=== PATIENT | male | born 1955 | race Caucasian/White ===

== ENCOUNTER 2018-05-08 14:36 | Emergency (ER) | payer MEDICARE, BC ==
--- NOTE | 2018-05-08 14:41 | EDM.PDOC ---
ED HPI GENERAL MEDICAL PROBLEM - General Chief Complaint: Chest Pain Stated Complaint: [id number] CHEST PAIN Time Seen by Provider: 05/08/18 14:41 Source of Information: Reports: Patient, RN, RN Notes Reviewed History Limitations: Reports: No Limitations - History of Present Illness INITIAL COMMENTS - FREE TEXT/NARRATIVE: Pt presents to ER from home by POV with c/o chest pain, radiating to left shoulder & upper arm, and shortness of breath. Pt states he has "extensive cardiac disease" and has Hx of 16 coronary artery stents. Pt reports onset of chest pain yesterday while walking in [employer]. Today the pain returned and was briefly relieved with Nitro. 0.4mg SL twice today. He admits to shortness of breath. Denies orthopnea, cough, wheezing, or edema. Onset: Gradual Onset Date: 05/07/18 Duration: Constant, Getting Worse, Waxing/Waning Location: Reports: Chest Quality: Reports: Ache, Pressure Severity: Severe Improves with: Reports: Medication (nitroglycerin), Rest Worsens with: Reports: Other (minimal exertion) Associated Symptoms: Reports: No Other Symptoms Treatments [employer]: Reports: Aspirin, Nitroglycerin, Other Medication(s) Left Chest Pain Score (Numeric/FACES): 3 - Related Data Allergies Allergy/AdvReac Type Severity Reaction Status Date / Time acetaminophen [From Percocet] Allergy Hives Verified 05/08/18 15:22 atorvastatin [From Lipitor] Allergy Muscle Verified 05/08/18 15:22 Aches morphine Allergy Other Verified 05/08/18 15:22 oxycodone [From Percocet] Allergy Hives Verified 05/08/18 15:22 pravastatin [From Pravachol] Allergy Muscle Verified 05/08/18 15:22 Aches Home Meds: Home Meds Aspirin/Calcium Carbonate/Mag [Aspirin Buffered 325 mg Tab] 325 mg PO DAILY 09/13 [History] Fenofibrate Nanocrystallized [Fenofibrate] 145 mg PO DAILY 11/07/16 [History] Fish Oil/[place]-3 Fatty Acids [Fish Oil 1,000 MG] 2,000 mg PO DAILY 11/07/16 [ History] Isosorbide Mononitrate [Isosorbide Mononitrate ER] 120 mg PO DAILY 11/07/16 [ History] Lutein 1 tab PO DAILY 11/07/16 [History] Metoprolol Succinate [Toprol XL 100mg] 100 mg PO DAILY 11/07/16 [History] Multivitamin [Multi-Vitamin Daily] 1 tab PO DAILY 11/07/16 [History] Nitroglycerin [IJP: Nitroglycerin] 0.4 mg SL ASDIRECTED 11/07/16 [History] Pantoprazole [ProTONIX] 40 cap PO DAILY 11/07/16 [History] Ramipril [Altace] 10 mg PO DAILY 11/07/16 [History] Venlafaxine HCl [Venlafaxine ER] 150 mg PO DAILY 11/07/16 [History] Zinc 50 mg PO DAILY 11/07/16 [History] Past Medical History HEENT History: Reports: None Cardiovascular History: Reports: Angina, CAD, High Cholesterol, Hypertension, Stents Respiratory History: Reports: Sleep Apnea Gastrointestinal History: Reports: Diverticulosis Genitourinary History: Reports: Renal Calculus Musculoskeletal History: Reports: Back Pain, Chronic, Gout, Osteoarthritis, Other (See Below) Other Musculoskeletal History: DEGENERATIVE DISC DISEASE Neurological History: Reports: None Psychiatric History: Reports: Anxiety, Depression Endocrine/Metabolic History: Reports: Obesity/BMI 30+ Hematologic History: Reports: Anemia Immunologic History: Reports: None Oncologic (Cancer) History: Reports: None Dermatologic History: Reports: None - Infectious Disease History Infectious Disease History: Reports: Chicken Pox, Measles, Mumps - Past Surgical History Cardiovascular Surgical History: Reports: Coronary Artery Stent, Other (See Below) Neurological Surgical History: Reports: Laminectomy, Lumbar Spine Musculoskeletal Surgical History: Reports: Arthroscopic Knee, Other (See Below) Social & Family History - Family History Family Medical History: Noncontributory GI: Reports: Hepatitis : Reports: Other (See Below) Other Family History: PROSTRATE Oncologic: Reports: Liver - Tobacco Use Smoking Status *Q: Former Smoker Tobacco Use Within Last Twelve Months: Cigarettes Years of Tobacco use: 24 (quit in 1985) - Caffeine Use Caffeine Use: Reports: Coffee - Alcohol Use Alcohol Use History: Yes Alcohol Use Frequency: Rarely - Recreational Drug Use Recreational Drug Use: No - Living Situation & Occupation Living situation: Reports: , with Spouse Occupation: Employed ED ROS GENERAL - Review of Systems Review Of Systems: ROS reveals no pertinent complaints other than HPI. ED EXAM, GENERAL - Physical Exam Exam: See Below Exam Limited By: No Limitations General Appearance: Alert, Anxious, Mild Distress, Obese Eye Exam: Bilateral Eye: EOMI, Normal Inspection, PERRL Ears: Hearing Grossly Normal Nose: Normal Inspection, Normal Mucosa, No Blood Throat/Mouth: Normal Inspection, Normal Lips, Normal Oropharynx, Normal Voice, No Airway Compromise Head: Atraumatic, Normocephalic Neck: Normal Inspection, Supple, Non-Tender, Full Range of Motion Respiratory/Chest: No Respiratory Distress, Lungs Clear, No Accessory Muscle Use , Decreased Breath Sounds Cardiovascular: Regular Rate, Rhythm, Tachycardia GI/Abdominal: Normal Bowel Sounds, Soft, Non-Tender, No Distention (Male) Exam: Deferred Rectal (Males) Exam: Deferred Back Exam: Normal Inspection Extremities: Normal Range of Motion, Non-Tender, Pedal Edema (trace) Neurological: Alert, Oriented, CN II-XII Intact, Normal Cognition, No Motor/ Sensory Deficits Psychiatric: Anxious Skin Exam: Warm, Intact, Normal Color, Diaphoretic EKG INTERPRETATION EKG Date: 05/08/18 Time: 14:46 Rhythm: Other (Sinus Tach) Rate (Beats/Min): 121 [place]: Normal P-Wave: Present QRS: Other (inferior Q-waves) ST-T: Normal QT: Normal Comparison: NA - No Prior EKG Course - Vital Signs Last Recorded V/S: Last Vital Signs Temp 36.6 C 05/08/18 14:59 Pulse 124 H 05/08/18 14:59 Resp 18 05/08/18 14:59 BP 160/72 H 05/08/18 14:59 Pulse Ox 93 L 05/08/18 14:59 - Orders/Labs/Meds Orders: Active Orders 24 hr Category Date Time Status EKG 12 Lead [EKG Documentation Completion] [RC] STAT Care 05/08/18 14:41 Active Peripheral IV Care [RC] . DIRECTED Care 05/08/18 14:48 Active Telemetry Monitoring [Cardiac Monitoring] [RC] . Care 05/08/18 14:48 Active DIRECTED Chest 1V Frontal [CR] Stat Exams 05/08/18 14:47 Ordered CK W CKMB [CHEM] Stat Lab 05/08/18 14:56 Results TSH ULTRASENSITIVE [CHEM] Stat Lab 05/08/18 14:56 Results Heparin Sodium/0.45% NaCl [Heparin 25,000 Units in 1/2 Med 05/08/18 15:30 Active NS 500 ML] 25,000 units in 500 ml IV TITRATE Nitroglycerin [Nitrostat] Med 05/08/18 14:46 Active 0.4 mg SL Q5M PRN Sodium Chloride 0.9% [Saline Flush] Med 05/08/18 14:47 Active 10 ml FLUSH ASDIRECTED PRN Peripheral IV Insertion Adult [OM.PC] Stat Oth 05/08/18 14:47 Ordered Medication Orders Heparin Sodium/Sodium Chloride (Heparin 25,000 Units In 1/2 Ns 500 Ml) 25,000 units in 500 mls @ 34.836 mls/hr IV TITRATE MIGUE; Protocol Last Admin: 05/08/18 15:37 Dose: 12 units/kg/hr, 34.836 mls/hr Nitroglycerin (Nitrostat) 0.4 mg SL Q5M PRN PRN Reason: Chest Pain Last Admin: 05/08/18 14:57 Dose: 0.4 mg Sodium Chloride (Saline Flush) 10 ml FLUSH ASDIRECTED PRN PRN Reason: Keep Vein Open Last Admin: 05/08/18 14:57 Dose: 10 ml Labs: Laboratory Tests 05/08/18 05/08/18 05/08/18 Range/Units 14:56 14:56 14:56 WBC 7.4 (5.0-10.0) 10^3/uL RBC 4.71 (4.6-6.2) 10^6/uL Hgb 15.0 (14.0-18.0) g/dL Hct 44.4 (40.0-54.0) % MCV 94.3 (80-100) fL MCH 31.8 (27.0-34.0) pg MCHC 33.8 (33.0-35.0) g/dL Plt Count 225 (150-450) 10^3/uL Neut % (Auto) 66.1 (42.2-75.2) % Lymph % (Auto) 24.1 (20.5-50.1) % [place] % (Auto) 8.4 H (2-8) % Eos % (Auto) 1.0 (1.0-3.0) % Baso % (Auto) 0.4 (0.0-1.0) % PT 9.5 (9.0-12.0) SEC INR 1.0 (0.9-1.2) APTT 25.2 (22.0-34.0) SEC Sodium 138 (135-145) mmol/L Potassium 4.2 (3.6-5.0) mmol/L Chloride 104 (101-111) mmol/L Carbon Dioxide 26.0 (21.0-31.0) mmol/L Anion Gap 12.2 BUN 25 H (7-18) mg/dL Creatinine 1.1 (0.6-1.3) mg/dL Est Cr Clr Drug Dosing 70.97 mL/min Estimated GFR (MDRD) > 60 BUN/Creatinine Ratio 22.72 Glucose 132 H (74-105) mg/dL Calcium 9.9 (8.4-10.2) mg/dl Magnesium 1.7 L (1.8-2.5) mg/dL Total Bilirubin 0.6 (0.2-1.0) mg/dL AST 37 (10-42) IU/L ALT 43 (10-60) IU/L Alkaline Phosphatase 86 (42-121) IU/L CK-MB (CK-2) (0.4-4.7) ng/mL Troponin I 0.28 H* (0.00-0.02) ng/ml B-Natriuretic Peptide 33 (0-100) pg/ml Total Protein 7.0 (6.7-8.2) g/dl Albumin 4.1 (3.2-5.5) g/dl Globulin 2.9 Albumin/Globulin Ratio 1.41 Lipase 43 (22-51) U/L 05/08/18 Range/Units 14:56 WBC (5.0-10.0) 10^3/uL RBC (4.6-6.2) 10^6/uL Hgb (14.0-18.0) g/dL Hct (40.0-54.0) % MCV (80-100) fL MCH (27.0-34.0) pg MCHC (33.0-35.0) g/dL Plt Count (150-450) 10^3/uL Neut % (Auto) (42.2-75.2) % Lymph % (Auto) (20.5-50.1) % [place] % (Auto) (2-8) % Eos % (Auto) (1.0-3.0) % Baso % (Auto) (0.0-1.0) % PT (9.0-12.0) SEC INR (0.9-1.2) APTT (22.0-34.0) SEC Sodium (135-145) mmol/L Potassium (3.6-5.0) mmol/L Chloride (101-111) mmol/L Carbon Dioxide (21.0-31.0) mmol/L Anion Gap BUN (7-18) mg/dL Creatinine (0.6-1.3) mg/dL Est Cr Clr Drug Dosing mL/min Estimated GFR (MDRD) BUN/Creatinine Ratio Glucose (74-105) mg/dL Calcium (8.4-10.2) mg/dl Magnesium (1.8-2.5) mg/dL Total Bilirubin (0.2-1.0) mg/dL AST (10-42) IU/L ALT (10-60) IU/L Alkaline Phosphatase (42-121) IU/L CK-MB (CK-2) 7.50 H (0.4-4.7) ng/mL Troponin I (0.00-0.02) ng/ml B-Natriuretic Peptide (0-100) pg/ml Total Protein (6.7-8.2) g/dl Albumin (3.2-5.5) g/dl Globulin Albumin/Globulin Ratio Lipase (22-51) U/L Meds: Medications Generic Name Dose Route Start Last Admin Trade Name Freq PRN Reason Stop Dose Admin Heparin Sodium/Sodium Chloride 25,000 units in 500 mls @ 34.836 mls/hr 15:30 05/08/18 15:37 Heparin 25,000 Units In 1/2 Ns 500 Ml IV 12 units/kg/hr TITRATE MIGUE 34.836 mls/hr Administration Protocol 12 UNITS/KG/HR Nitroglycerin 0.4 mg 05/08/18 14:46 05/08/18 14:57 Nitrostat SL 0.4 mg Q5M PRN Administration Chest Pain Sodium Chloride 10 ml 05/08/18 14:47 05/08/18 14:57 Saline Flush FLUSH 10 ml ASDIRECTED PRN Administration Keep Vein Open Discontinued Medications Generic Name Dose Route Start Last Admin Trade Name Freq PRN Reason Stop Dose Admin Aspirin 324 mg 07/12/18 14:46 05/08/18 14:57 Aspirin PO 05/08/18 14:47 324 mg ONETIME ONE Administration Aspirin Confirm 05/08/18 14:54 05/08/18 15:00 Aspirin Administered 05/08/18 14:55 Not Given Dose 81 mg .ROUTE .STK-MED ONE Heparin Sodium (Porcine) 4,000 units 05/08/18 15:29 05/08/18 15:37 Heparin Sodium IVPUSH 05/08/18 15:30 4,000 units .BOLUS ONE Administration Nitroglycerin 1 gm 05/08/18 14:48 05/08/18 15:03 Nitro-Bid 2% TOP 05/08/18 14:49 1 gm ONETIME ONE Administration - Radiology Interpretation Free Text/Narrative:: CXR: obese CXR: obese body habitus, no acute C/P process, see Rad. report. Departure - Departure Time of Disposition: 15:40 Disposition: DC/Tfer to [facility] 02 Reason for Transfer *Q: Primary PCI Indicated Condition: Critical Clinical Impression: Non-ST elevated myocardial infarction (non-STEMI), Acute coronary syndrome, Elevated troponin Forms: ED Department Discharge, Interfacility Transfer EMTALA - My Orders Last 24 Hours: My Active Orders 05/08/18 14:41 EKG 12 Lead [EKG Documentation Completion] [RC] STAT 05/08/18 14:46 Nitroglycerin [Nitrostat] 0.4 mg SL Q5M PRN 05/08/18 14:47 Chest 1V Frontal [CR] Stat Sodium Chloride 0.9% [Saline Flush] 10 ml FLUSH ASDIRECTED PRN Peripheral IV Insertion Adult [OM.PC] Stat 05/08/18 14:48 Peripheral IV Care [RC] . DIRECTED Telemetry Monitoring [Cardiac Monitoring] [RC] . DIRECTED 05/08/18 14:56 CK W CKMB [CHEM] Stat TSH ULTRASENSITIVE [CHEM] Stat 05/08/18 15:30 Heparin Sodium/0.45% NaCl [Heparin 25,000 Units in 1/2 NS 500 ML] 25,000 units in 500 ml IV TITRATE - Assessment/Plan Last 24 Hours: My Active Orders 05/08/18 14:41 EKG 12 Lead [EKG Documentation Completion] [RC] STAT 05/08/18 14:46 Nitroglycerin [Nitrostat] 0.4 mg SL Q5M PRN 05/08/18 14:47 Chest 1V Frontal [CR] Stat Sodium Chloride 0.9% [Saline Flush] 10 ml FLUSH ASDIRECTED PRN Peripheral IV Insertion Adult [OM.PC] Stat 05/08/18 14:48 Peripheral IV Care [RC] . DIRECTED Telemetry Monitoring [Cardiac Monitoring] [RC] . DIRECTED 05/08/18 14:56 CK W CKMB [CHEM] Stat TSH ULTRASENSITIVE [CHEM] Stat 05/08/18 15:30 Heparin Sodium/0.45% NaCl [Heparin 25,000 Units in 1/2 NS 500 ML] 25,000 units in 500 ml IV TITRATE
[2018-05-08] MEDS ORDERED: Nitroglycerin 0.4 MG Tab.SL SL PRN (14:46)
[2018-05-08] MEDS ORDERED: Aspirin 81 MG Tab.Chew PO ONE (14:46)
[2018-05-08] MEDS ORDERED: Sodium Chloride 0.9% 10 ML Syringe FLUSH PRN (14:47)
[2018-05-08] MEDS ORDERED: Nitroglycerin 2% Oint 1 GM UD Packet TOP ONE (14:48)
[2018-05-08] MEDS ORDERED: Aspirin 81 MG Tab.Chew ONE (14:54)
[2018-05-08 14:57] VITALS: BP 160/72
[2018-05-08 15:25] LABS: ANION GAP 12.2; CHLORIDE,CL 104 mmol/L (101-111); SODIUM,NA 138 mmol/L (135-145)
[2018-05-08] MEDS ORDERED: Heparin Sodium 5,000 Units/ML Vial IVPUSH ONE (15:29)
[2018-05-08] MEDS ORDERED: Heparin Sodium/0.45% NaCl 25,000 UNITS/500 ML BAG IV SCH (15:30)
== END 2018-05-08 16:18 ==
LOC: DL.ED 14:36
DX: I21.4 Non-ST elevation (NSTEMI) myocardial infarction (principal); I24.9 Acute ischemic heart disease, unspecified; R79.89 Other specified abnormal findings of blood chemistry; E78.00 Pure hypercholesterolemia, unspecified; I10 Essential (primary) hypertension; Z88.6 Allergy status to analgesic agent; Z88.5 Allergy status to narcotic agent; Z88.8 Allergy status to other drugs, medicaments and biological substances; Z79.82 Long term (current) use of aspirin; Z79.899 Other long term (current) drug therapy; Z87.891 Personal history of nicotine dependence
CPT/HCPCS: 36415; 71045; 80053; 82550; 82553; 83690; 83735; 83880; 84443; 84484; 85025; 85610; 85730; 93005; 93010; 96365; 99284; 99285; A9270; J1644; J7050

== ENCOUNTER 2019-02-28 15:22 | Emergency (ER) | payer MEDICARE, BC ==
[2019-02-28 16:09] VITALS: BP 109/52
--- NOTE | 2019-02-28 17:18 | EDM.PDOC ---
Scribed by Marni New 02/28/19 1473 for Devante Crane MD ED HPI GENERAL MEDICAL PROBLEM - General Chief Complaint: Lower Extremity Injury/Pain Stated Complaint: LEFT KNEE PAIN Time Seen by Provider: 02/28/19 16:16 Source of Information: Reports: Patient, RN, RN Notes Reviewed History Limitations: Reports: No Limitations - History of Present Illness INITIAL COMMENTS - FREE TEXT/NARRATIVE: Patient presents to ER with complaint that yesterday he was getting into a van. Put right leg in and heard a crack and a pop to left knee. States it isn't really swollen. States he has been using crutches since and not walking on it. Has had trouble with the left knee for the past year and 1/2 about. Was offered an MRI before but declined. Has been using Tylenol at home and took last about 1 1/2 hour ago. Tylenol has not been helping. Onset Date: 02/27/19 Duration: Constant Location: Reports: Lower Extremity, Left Quality: Reports: Ache Severity: Moderate Improves with: Reports: None Worsens with: Reports: None Associated Symptoms: Reports: No Other Symptoms Left Knee Pain Score (Numeric/FACES): 9 - Related Data Allergies Allergy/AdvReac Type Severity Reaction Status Date / Time acetaminophen [From Percocet] Allergy Hives Verified 05/08/18 15:22 atorvastatin [From Lipitor] Allergy Muscle Verified 05/08/18 15:22 Aches morphine Allergy Other Verified 05/08/18 15:22 oxycodone [From Percocet] Allergy Hives Verified 05/08/18 15:22 pravastatin [From Pravachol] Allergy Muscle Verified 05/08/18 15:22 Aches Home Meds: Home Meds Fenofibrate Nanocrystallized [Fenofibrate] 145 mg PO DAILY 11/07/16 [History] Fish Oil/[place]-3 Fatty Acids [Fish Oil 1,000 MG] 2,000 mg PO DAILY 11/07/16 [ History] Isosorbide Mononitrate [Isosorbide Mononitrate ER] 120 mg PO DAILY 11/07/16 [ History] Lutein 1 tab PO DAILY 11/07/16 [History] Metoprolol Succinate [Toprol XL 100mg] 100 mg PO DAILY 11/07/16 [History] Multivitamin [Multi-Vitamin Daily] 1 tab PO DAILY 11/07/16 [History] Nitroglycerin [IJP: Nitroglycerin] 0.4 mg SL ASDIRECTED 11/07/16 [History] Pantoprazole [ProTONIX] 40 cap PO DAILY 11/07/16 [History] Ramipril [Altace] 10 mg PO DAILY 11/07/16 [History] Venlafaxine HCl [Venlafaxine ER] 150 mg PO DAILY 11/07/16 [History] Zinc 50 mg PO DAILY 11/07/16 [History] Albuterol [Ventolin HFA] 2 puff INH ASDIRECTED PRN 02/28/19 [History] Aspirin 81 mg PO DAILY 02/28/19 [History] Clopidogrel Bisulfate [Clopidogrel] 75 mg PO DAILY 02/28/19 [History] Past Medical History HEENT History: Reports: None Cardiovascular History: Reports: Angina, CAD, High Cholesterol, Hypertension, Stents Respiratory History: Reports: Sleep Apnea Gastrointestinal History: Reports: Diverticulosis Genitourinary History: Reports: Renal Calculus Musculoskeletal History: Reports: Back Pain, Chronic, Gout, Osteoarthritis, Other (See Below) Other Musculoskeletal History: DEGENERATIVE DISC DISEASE. Left knee problems Neurological History: Reports: None Psychiatric History: Reports: Anxiety, Depression Endocrine/Metabolic History: Reports: Obesity/BMI 30+ Hematologic History: Reports: Anemia Immunologic History: Reports: None Oncologic (Cancer) History: Reports: None Dermatologic History: Reports: None - Infectious Disease History Infectious Disease History: Reports: Chicken Pox, Measles, Mumps - Past Surgical History Cardiovascular Surgical History: Reports: Coronary Artery Stent, Other (See Below) Neurological Surgical History: Reports: Laminectomy, Lumbar Spine Musculoskeletal Surgical History: Reports: Arthroscopic Knee Social & Family History - Family History Family Medical History: Noncontributory GI: Reports: Hepatitis : Reports: Other (See Below) Other Family History: PROSTRATE Oncologic: Reports: Liver - Tobacco Use Smoking Status *Q: Never Smoker Second Hand Smoke Exposure: No - Caffeine Use Caffeine Use: Reports: Coffee - Living Situation & Occupation Living situation: Reports: , with Spouse Occupation: Employed Review of Systems - Review of Systems Review Of Systems: ROS reveals no pertinent complaints other than HPI. ED EXAM, GENERAL - Physical Exam Exam: See Below Exam Limited By: No Limitations General Appearance: Alert, WD/WN, No Apparent Distress, Obese Head: Atraumatic, Normocephalic Respiratory/Chest: No Respiratory Distress Cardiovascular: Normal Peripheral Pulses Extremities: No Pedal Edema, Normal Capillary Refill, Joint Swelling (mild left knee swelling at anterior/superior aspect, no increased warmth, erythema, or bruising) Neurological: Alert, Oriented, No Motor/Sensory Deficits Psychiatric: Normal Mood Skin Exam: Warm, Dry, Intact, Normal Color, No Rash Course - Vital Signs Last Recorded V/S: Last Vital Signs Temp 36.3 C 02/28/19 15:50 Pulse 74 02/28/19 15:50 Resp 18 02/28/19 15:50 BP 109/52 L 02/28/19 15:50 Pulse Ox 96 02/28/19 15:50 - Orders/Labs/Meds Orders: Active Orders 24 hr Category Date Time Status Immobilizer [RC] ASDIRECTED Care 02/28/19 17:06 Active Knee 3V Lt [CR] Urgent Exams 02/28/19 16:22 Taken - Radiology Interpretation Free Text/Narrative:: [facility] Final Radiology Report Call: [phone] assistance Online chat: [email or web address] Name: PARRIS LINDO Age: 63Years M Date: 02/28/2019 SSN: -- : 1955 Study: XR KNEE 3 VIEWS LEFT Requesting Physician: DEVANTE CRANE Images: 3 Addl Studies: Provided Clinical History: Contrast: Contrast Medium: Contrast Amount: Contrast Method: CONFIDENTIALITY STATEMENT This report is intended only for use by the referring physician, and only in accordance with law. If you received this in error, call [phone]. Page 1 of 1 EXAM: XR Left Knee, 3 Views EXAM DATE/TIME: 02/28/2019 4:29 PM CLINICAL HISTORY: 63 years old, male; Signs and symptoms; Other: Knee "gave out"-unable to bear weight/pain TECHNIQUE: Imaging protocol: XR Left knee. Views: 3 views. COMPARISON: No relevant prior studies available. FINDINGS: Bones/joints: Small suprapatellar effusion . Mild medial and patellofemoral compartment degenerative changes. No acute fracture IMPRESSION: Small suprapatellar effusion Mild degenerative changes Thank you for allowing us to participate in the care of your patient. Dictated and Authenticated by: Demetrius Myers MD 02/28/2019 4:39 PM Central Time ([place] & Luis Daniel) Departure - Departure Time of Disposition: 17:13 Disposition: Home, Self-Care 01 Condition: Good Clinical Impression: Suprapatellar bursitis of left knee, Derangement of knee - Discharge Information *PRESCRIPTION DRUG MONITORING PROGRAM REVIEWED*: No *COPY OF PRESCRIPTION DRUG MONITORING REPORT IN PATIENT IAM: No Instructions: Bursitis, [id number], Knee Effusion, [id number] Forms: ED Department Discharge Additional Instructions: Rest, ice packs, and elevate left knee to reduce pain and swelling. Use crutches and knee immobilizer. Follow up in clinic with Dr. Vasquez in 5 to 7 days for recheck, and consideration of MRI of the knee. - My Orders Last 24 Hours: My Active Orders 02/28/19 16:22 Knee 3V Lt [CR] Urgent 02/28/19 17:06 Immobilizer [RC] ASDIRECTED - Assessment/Plan Last 24 Hours: My Active Orders 02/28/19 16:22 Knee 3V Lt [CR] Urgent 02/28/19 17:06 Immobilizer [RC] ASDIRECTED I have read and agree with the documentation that has been completed regarding this visit. By signing this record, I attest that the documentation was completed in my physical presence and is an accurate record of the encounter.
== END 2019-02-28 17:38 | disposition home or self-care (01) ==
LOC: DL.ED 15:22
DX: S89.92XA Unspecified injury of left lower leg, initial encounter (principal); M70.51 Other bursitis of knee, right knee; I10 Essential (primary) hypertension; E78.00 Pure hypercholesterolemia, unspecified; F41.9 Anxiety disorder, unspecified; F32.9 Major depressive disorder, single episode, unspecified; Z88.6 Allergy status to analgesic agent; Z88.5 Allergy status to narcotic agent; Z79.899 Other long term (current) drug therapy; Z79.82 Long term (current) use of aspirin; X58.XXXA Exposure to other specified factors, initial encounter
CPT/HCPCS: 73562-LT; 99283-25